=== PATIENT | male | born 1995 | race Two or more races ===

== ENCOUNTER 2017-02-09 17:09 | Emergency (ER) | payer SELFPAY ==
[~2017-02-09] VITALS: Ht 180.3 cm; Wt 98.9 kg
[2017-02-09 17:32] VITALS: BP 131/72
== END 2017-02-09 19:30 | disposition home or self-care (01) ==
LOC: ER 17:21
DX: S33.5XXA Sprain of ligaments of lumbar spine, initial encounter (principal); E78.5 Hyperlipidemia, unspecified; X50.0XXA Overexertion from strenuous movement or load, initial encounter; Y93.89 Activity, other specified; Y99.8 Other external cause status; Y92.89 Other specified places as the place of occurrence of the external cause

== ENCOUNTER 2024-02-14 18:17 | Emergency (ER) | payer OTHER ==
[~2024-02-14] VITALS: Ht 177.8 cm; Wt 110.6 kg
--- NOTE | 2024-02-14 18:44 | ED.PDOC ---
General HPI Comments HPI: Poor Historian. 22-year-old male presents to the emergency department for evaluation of 4 day history of nonspecific sensation at the tip of his penis. Denies any history of STDs. Patient had something online and was concerned of possible STDs. Denies any other urinary symptoms or any other acute symptoms. VITALS: TEMP: 98.2 HEART RATE; 99 02 SAT; 97% on room air RR; 18 BP; 138/90 PMH: denies PSH: appendectomy SOCIAL HISTORY: denies tobacco use, denies etoh use, denies drug use MEDS; denies ALLERGIES; denies REVIEW OF SYSTEMS: CONSTITUTIONAL: Denies acute: fever, diaphoresis, chills, generalized weakness. HEAD: Denies acute: headache, photophobia Eyes: Denies acute: Double vision, vision loss, eye pain, eye discharge. EARS: Denies acute: tinnitus, hearing loss, ear discharge, ear pain, THROAT: Denies acute: sore throat, swelling, difficulty swallowing , pain with swallowing, change in voice. NECK: Denies acute: neck pain, neck swelling, stiff neck. HEART: Denies acute : chest pain, palpitations, LUNGS: Denies acute: SOB, wheezing, cough, hemoptysis ABDOMEN: Denies acute: abdominal pain, Nausea, Vomiting, diarrhea, melena , hematemesis, hematochezia SKIN: Denies acute: rash, redness, lesions, itchiness. EXTREMITIES: Denies acute: calf pain, numbness, tingling, weakness, denies pain in extremity. Denies acute: Low back pain. Neuro: Denies acute: focal neurological deficit, motor or sensory focal neurological deficit, tremors, seizure like activity, confusion, dizziness, change in mental status, loss of bowel or bladder function, cauda equina like symptoms. : Denies acute: dysuria, hematuria, flank pain, increase in urinary frequency. PSYCH: Denies acute: hallucination, suicidal ideation, homicidal ideation. PHYSICAL EXAM: General: no acute distress, awake and alert. Head: normocephalic, atraumatic. Neck: supple, trachea is midline, no swelling. Throat: Normal phonation. Eyes:, no erythema, no purulent discharge, no proptosis, no icterus. Heart: regular rate, regular rhythm, no significant murmur appreciated. Lungs: no apparent respiratory distress, Able to speak in full sentences. No wheezing, no rhonchi, no crackles. No stridors Clear to auscultation bilaterally. Abdomen: non tender to palpation, non distended, soft, no guarding, no rebound, + bowel sounds. : Uncircumcised external male genitalia, no apparent discharge, no swelling, no erythema, palpation of the scrotal sac content reveals no masses. No crepitus, minimal tenderness to palpation on bilateral testicles. Neuro: Awake, Alert, oriented to name, self, situation, follows commands GCS=15. Speech is normal. Skin: no petechia, no purpura, no cyanosis, non-pale, not jaundice. Lower extremities: --no - Pitting edema no deformity, no focal swelling, no calf TTP. Makes eye contact. moves all four extremities. Face: no apparent facial droop. No CVA tenderness to percussion bilaterally. Ambulating in the ED independently. No nuchal rigidity, Kernig's sign, Brudzinski's sign, no meningeal signs. Time Seen by MD: 18:54 Primary Care Provider: THERESE Tellez notes: Allergies Allergies: Uncoded Allergies: DONATOL (Allergy, Unknown, 02/09/17) Information Source: Patient Mode of Arrival: Ambulatory Brought in by: self Past Medical History PAST MEDICAL HISTORY: Denies Surgical History: Appendectomy Social History Smoker: Non-Smoker Alcohol: Denies ETOH Use Drugs: Denies Drug Use Lives In: Home Was a procedure done? Was a procedure done?: No Differential Diagnosis Kidney stone (Female): N/A Penile/Scrotal: STD, UTI, Fractured Penis, Phimosis, Hydrocele, Testicular Torsion, Urinary Retention Urinary Problem (Male): Bladder Outlet, Bladder Obstruction, Epididymitis, Prostatitis, Plelonephritis, Post op Complications, Renal Failure, Urethritis, Urinary Retention, Urolithiasis, UTI, Other X-Ray, Labs, Meds, VS Vital Signs Date Time Temp Pulse Resp B/P (MAP) Pulse Ox O2 Delivery O2 Flow Rate FiO2 02/14/24 18:55 98.2 99 18 138/90 (106) 97 Lab Test 02/14/24 19:35 02/14/24 19:00 Range/Units Urine Color Colorless Yellow Urine Clarity Clear Clear Urine pH 6.0 5.0-9.0 Urine Specific [place] 1.007 1.001-1.035 Urine Protein Negative Negative Urine Ketones Negative Negative Urine Blood Negative Negative /uL Urine Nitrite Negative Negative Urine Bilirubin Negative Negative Urine Urobilinogen Normal Negative mg/dL Urine Leukocyte Esterase Negative Negative /uL Urine RBC <1 0 - 3 /hpf Urine WBC <1 0 - 3 /hpf Urine Squamous Epithelial Cells None seen <5 /hpf Urine Bacteria Few H None Seen /hpf Urine Glucose Normal Normal mg/dL Urine Opiates Screen Neg NEGATIVE Urine Fentanyl Screen Neg NEGATIVE Urine Barbiturates Screen Neg NEGATIVE Urine Phencyclidine Screen Neg NEGATIVE Urine Amphetamines Screen Neg NEGATIVE Urine Benzodiazepines Screen Neg NEGATIVE Urine Cocaine Screen Neg NEGATIVE Urine Cannabinoids Screen Neg NEGATIVE Chlamydia trachomatis (GARRY) Pending Neisseria gonorrhoeae (GARRY) Pending White Blood Count 7.7 4.4-10.8 10^3/uL Red Blood Count 5.38 4.5-5.90 10^6/uL Hemoglobin 16.2 13.5-17.5 g/dL Hematocrit 45.2 41.0-53.0 % Mean Corpuscular Volume 83.9 80.0-100.0 fL Mean Corpuscular Hemoglobin 30.1 28.0-32.0 pg Mean Corpuscular Hemoglobin Concent 35.8 32.0-36.0 g/dL Red Cell Distribution Width 13.2 11.8-14.3 % Platelet Count 313 140-450 10^3/uL Mean Platelet Volume 7.7 6.9-10.8 fL Neutrophils (%) (Auto) 62.1 37.0-80.0 % Lymphocytes (%) (Auto) 31.4 10.0-50.0 % Monocytes (%) (Auto) 5.5 0.0-12.0 % Eosinophils (%) (Auto) 0.3 0.0-7.0 % Basophils (%) (Auto) 0.7 0.0-2.0 % Neutrophils # (Auto) 4.8 1.6-8.6 10 ^3/uL Lymphocytes # (Auto) 2.4 0.4-5.4 10 ^3/uL Monocytes # (Auto) 0.4 0-1.3 10 ^3/uL Eosinophils # (Auto) 0 0-0.8 10 ^3/uL Basophils # (Auto) 0.1 0-0.2 10 ^3/uL Nucleated Red Blood Cells 0.1 % Sodium Level 140 136-145 mmol/L Potassium Level 3.8 3.5-5.1 mmol/L Chloride Level 105 98-107 mmol/L Carbon Dioxide Level 26 20-31 mmol/L Anion Gap 9 5-15 Blood Urea Nitrogen 8 L 9-23 mg/dL Creatinine 1.04 0.700-1.30 mg/dL Glomerular Filtration Rate Calc 100 >90 mL/min BUN/Creatinine Ratio 7.7 L 10.0-20.0 Serum Glucose 91 74-106 mg/dL Lactic Acid Level 1.7 0.4-2.0 mmol/L Calcium Level 10.0 8.7-10.4 mg/dL Total Bilirubin 0.7 0.2-1.0 mg/dL Aspartate Amino Transferase (AST) 16 13-40 U/L Alanine Aminotransferase (ALT) 39 7-40 U/L Alkaline Phosphatase 82 46-116 U/L Total Protein 7.8 5.7-8.2 g/dL Albumin 4.7 3.2-4.8 g/dL [place] [address] Ph: [phone] DIAGNOSTIC IMAGING Diagnostic Imaging Report : [id number] Signed PATIENT: SOFIA WOOD ACCT: [id number] UNIT: [id number] : 1995 LOC: ER ROOM / BED: / AGE / SEX: 28 / M ADM STATUS: REG ER SERVICE 1830 ORDERING PHYSICIAN: ABELINO AUGUSTIN DO PROCEDURE(s): TESUS - TESTICULAR ULTRASOUND REASON: pain ORDER NUMBER(s): [id number], ACCESSION NUMBER(s): [id number] ULTRASOUND SCROTUM CLINICAL INDICATION: pain testicular pain TECHNIQUE: High resolution scrotal ultrasound was performed with a linear transducer with duplex doppler and telephone claims representative images acquired. Color Doppler with spectral analysis was performed/attempted of the testes. COMPARISON: None FINDINGS: Right testicle: Normal in size, measuring 4.2 x 2.5 x 3.2 cm. The testicular parenchyma is homogeneous. No testicular mass. Normal intratesticular blood flow. The right epididymis appears normal. Trace right hydrocele Left testicle: Normal in size, measuring 3.9 x 2.6 x 3.7 cm. The testicular parenchyma is homogeneous. No testicular mass. Normal intratesticular blood flow. The left epididymis appears normal. Small left epididymal head cyst measuring 1 cm . trace left hydrocele. IMPRESSION: 1. Normal testicles without torsion. 2. Trace bilateral hydroceles. 3. Epididymal head cyst on the left measuring 1 cm. ATED BY: BRIGITTE BENITES MD DICTATED DATE/TIME: 02/14/241912 SIGNED BY: BRIGITTE BENITES MD SIGNED DATE/TIME: 02/14/241912 CC: Time of 1ST Reevaluation: 21:10 Reevaluation 1ST: Unchanged Patient Education/Counseling: Diagnosis, Treatment Family Education/Counseling: No Family Present Comments Patient presented with the above HPI.---urinary symptoms---workup was initiated. patient was found with the above mentioned diagnosis. Patient was given: Rocephin 1 g and azithromycin 1 g since patient was co ncerned about possible STD. Serology for STD results are not back. Patient ED course and VS have been stabilized. Patient has been reassessed in the ED and remained in a stable condition. Pertinent incidental findings were discussed with the patient and/or family. Patient/family voices understanding and is agreeable with plan. Patient has been observed in the ED adequate length of time to insure improvement/stability. patient was discharged home in a stable condition All the reports of any imaging studies that were ordered by myself were reviewed by myself. Departure 1 Departure Time of Disposition: 19:57 Impression: Primary Impression: Lower urinary tract symptoms Additional Impressions: Hydrocele in adult Epididymal cyst Concern about STD in male without diagnosis Disposition: 01 HOME / SELF CARE / HOMELESS Condition: Stable Additional Instructions: Additional discharge instructions: You MUST follow-up with your primary care/family doctor in 1 to 2 days. If you are unable to see your primary care/family doctor, please return to our emergency room for re-assessment and re-evaluation in 1 to 2 days. Return to the emergency room here in our facility or to the nearest ER [facility] if your symptoms change or worsen. CONSULTATIONS: you MUST Follow-up for consultation as soon as possible with: ---urology in 1-2 days. Please call for appointment. You MUST call the consultants office yourself to make an appointment. You may need to arrange that through your insurance and/or your primary/family doctor. If you are unable to see the licensed tax consultant in 1 to 2 days, you must return to our emergency room (or any other ER of your choice) for re-assessment and re- evaluation. Adequate fluid hydration. Pelvic rest. Decrease sugar intake. Below is a copy of your radiological report for follow up: [place] [address] Ph: [phone] DIAGNOSTIC IMAGING Diagnostic Imaging Report : [id number] Signed PATIENT: SOFIA WOOD ACCT: [id number] UNIT: [id number] : 1995 LOC: ER ROOM / BED: / AGE / SEX: 28 / M ADM STATUS: REG ER SERVICE 29 ORDERING PHYSICIAN: ABELINO AUGUSTIN DO PROCEDURE(s): TESUS - TESTICULAR ULTRASOUND REASON: pain ORDER NUMBER(s): [id number], ACCESSION NUMBER(s): [id number] ULTRASOUND SCROTUM CLINICAL INDICATION: pain testicular pain TECHNIQUE: High resolution scrotal ultrasound was performed with a linear transducer with duplex doppler and telephone claims representative images acquired. Color Doppler with spectral analysis was performed/attempted of the testes. COMPARISON: None FINDINGS: Right testicle: Normal in size, measuring 4.2 x 2.5 x 3.2 cm. The testicular parenchyma is homogeneous. No testicular mass. Normal intratesticular blood flow. The right epididymis appears normal. Trace right hydrocele Left testicle: Normal in size, measuring 3.9 x 2.6 x 3.7 cm. The testicular parenchyma is homogeneous. No testicular mass. Normal intratesticular blood flow. The left epididymis appears normal. Small left epididymal head cyst measuring 1 cm . trace left hydrocele. IMPRESSION: 1. Normal testicles without torsion. 2. Trace bilateral hydroceles. 3. Epididymal head cyst on the left measuring 1 cm. ATED BY: BRIGITTE BENITES MD DICTATED DATE/TIME: 02/14/241912 SIGNED BY: BRIGITTE BENITES MD SIGNED DATE/TIME: 02/14/241912 CC: Discharged With: Self Critical Care Note Critical Care Time?: No I personally scribed for ABELINO AUGUSTIN DO ([facility] on 02/14/24 at 18:44. Electronically submitted by Beatriz Berry ([email or web address]). I personally scribed for ABELINO AUGUSTIN DO ([email or web address]) on 02/14/24 at 18:55. Electronically submitted by Beatriz Berry ([facility] [place]). I personally scribed for ABELINO AUGUSTIN DO ([email or web address]) on 02/14/24 at 19:34. Electronically submitted by Beatriz Berry ([email or web address]). I personally scribed for ABELINO AUGUSTIN DO ([facility]) on 02/14/24 at 21:04. Electronically submitted by Beatriz Berry ([facility] [place]). ABELINO AUGUSTIN DO Feb 14, 2024 18:44
[2024-02-14 18:55] VITALS: BP 138/90; PULSE 99; RESP 18; O2SAT 97
--- NOTE | 2024-02-14 19:15 | DVH ---
ULTRASOUND SCROTUM CLINICAL INDICATION: pain testicular pain TECHNIQUE: High resolution scrotal ultrasound was performed with a linear transducer with duplex dopp ler and agricultural sales representative images acquired. Color Doppler with spectral analysis was performed/attempted of the testes. COMPARISON: None FINDINGS: Right testicle: Normal in size, measuring 4.2 x 2.5 x 3.2 cm. The testicular parenchyma is homogeneou s. No testicular mass. Normal intratesticular blood flow. The right epididymis appears normal. Trace right hydrocele Left testicle: Normal in size, measuring 3.9 x 2.6 x 3.7 cm. The testicular parenchyma is homogeneous . No testicular mass. Normal intratesticular blood flow. The left epididymis appears normal. Small left epididymal head cyst measuring 1 cm . trace left hydrocele. IMPRESSION: 1. Normal testicles without torsion. 2. Trace bilateral hydroceles. 3. Epididymal head cyst on the left measuring 1 cm.
[2024-02-14 19:28] LABS: Basophils # (auto) 0.1 10 ^3/uL (0-0.2); Basophils % (auto) 0.7 % (0.0-2.0); Eosinophils # (auto) 0 10 ^3/uL (0-0.8); Eosinophils % (auto) 0.3 % (0.0-7.0); Hematocrit 45.2 % (41.0-53.0); Hemoglobin 16.2 g/dL (13.5-17.5); Lymphocytes # (auto) 2.4 10 ^3/uL (0.4-5.4); Lymphocytes % (auto) 31.4 % (10.0-50.0); Mean Corpuscular Hemoglobin 30.1 pg (28.0-32.0); Mean Corpuscular Hgb Conc. 35.8 g/dL (32.0-36.0); Mean Corpuscular Volume 83.9 fL (80.0-100.0); Monocytes # (auto) 0.4 10 ^3/uL (0-1.3); Monocytes % (auto) 5.5 % (0.0-12.0); Neutrophils # (auto) 4.8 10 ^3/uL (1.6-8.6); Neutrophils % (auto) 62.1 % (37.0-80.0); Nucleated Red Blood Cells % 0.1 %; Platelet Count (auto) 313 10^3/uL (140-450); Red Blood Cells 5.38 10^6/uL (4.5-5.90); Red Cell Distribution Width 13.2 % (11.8-14.3); White Blood Cell 7.7 10^3/uL (4.4-10.8)
[2024-02-14 19:59] LABS: Alanine Aminotransferase 39 U/L (7-40); Albumin 4.7 g/dL (3.2-4.8); Alkaline Phosphatase 82 U/L (46-116); Anion Gap 9 (5-15); Aspartate Aminotransferase 16 U/L (13-40); BUN/Creatinine Ratio 7.7 (10.0-20.0); Bilirubin, Total 0.7 mg/dL (0.2-1.0); Blood Urea Nitrogen 8 mg/dL (9-23); Carbon Dioxide 26 mmol/L (20-31); Chloride 105 mmol/L (98-107); Glucose 91 mg/dL (74-106); Potassium 3.8 mmol/L (3.5-5.1); Sodium 140 mmol/L (136-145); Total Protein 7.8 g/dL (5.7-8.2)
[2024-02-14 20:17] LABS: Urine Bacteria FEW /hpf (None Seen); Urine Blood Negative /uL (Negative); Urine Clarity Clear (Clear); Urine Color Colorless (Yellow); Urine Protein, UAD Negative (Negative); Urine Specific Gravity 1.007 (1.001-1.035); Urine Urobilinogen Normal (Negative); Urine WBC <1 /hpf (0 - 3)
[2024-02-14 20:22] LABS: Amphetamine Screen, Urine Neg (NEGATIVE); Barbiturate Scree,Urine Neg (NEGATIVE); Benzodiazephine Screen, Urine Neg (NEGATIVE); Cocaine Screen, Urine Neg (NEGATIVE); Opiate Scree,Urine Neg (NEGATIVE)
[2024-02-14 20:23] LABS: Cannabinoid Screen, Urine Neg (NEGATIVE); Phencyclidine Screen, Urine Neg (NEGATIVE)
[2024-02-14] MEDS ORDERED: cefTRIAXone W LIDOCAINE 1 GM IM IM ONE (21:00)
[2024-02-14] MEDS: AZITHROMYCIN 250 MG TAB PO ONE (21:44)
[2024-02-14] MEDS ORDERED: AZITHROMYCIN 250 MG TAB PO ONE (22:00)
[2024-02-14] MEDS: cefTRIAXone SOD 1,000 MG VL ONE (22:31)
[2024-02-14] MEDS: cefTRIAXone W LIDOCAINE 1 GM IM IM ONE (22:31)
[2024-02-17 12:06] LABS: Chlamydia Trachomatis, NAA Negative (Negative); Neisseria gonorrhoeae, NAA Negative (Negative)
== END 2024-02-14 22:32 | disposition home or self-care (01) ==
LOC: ER 18:17
DX: N43.3 Hydrocele, unspecified (principal); N50.3 Cyst of epididymis; N39.0 Urinary tract infection, site not specified; Z90.49 Acquired absence of other specified parts of digestive tract
CPT/HCPCS: 36415; 76870; 80053; 80307; 81001; 83605; 85025; 87491; 87591; 96372; 99285; J0696